=== PATIENT | female | born 1990 | race Caucasian/White ===

== ENCOUNTER 2022-12-06 21:00 | Emergency (ER) | payer BC, SELFPAY ==
[2022-12-06] MEDS ORDERED: Ketorolac Tromethamine 30 MG/ML VIAL ONE (21:16)
[2022-12-06] MEDS ORDERED: Morphine 4 MG/ML VIAL ONE ×2 (21:16→22:30)
== END 2022-12-06 23:00 | disposition home or self-care (01) ==
LOC: ERS 21:00
DX: S93.401A Sprain of unspecified ligament of right ankle, initial encounter (principal); S93.402A Sprain of unspecified ligament of left ankle, initial encounter; E03.9 Hypothyroidism, unspecified; W21.07XA Struck by softball, initial encounter
CPT/HCPCS: 96374; 96375; 96376; J1885; J2270